=== PATIENT | female | born 1930 | race Caucasian/White ===

== ENCOUNTER 2016-10-19 00:57 | Inpatient (IN) | payer MEDICARE ==
[~2016-10-19] VITALS: Ht 157.5 cm; Wt 49.0 kg
[2016-10-19] MEDS ORDERED: LORAZEPAM 0.5 MG TABLET PO PRN (01:30)
[2016-10-19] MEDS ORDERED: MAG HYDROX/AL HYDROX/SIMETH 30 ML UDC PO PRN (01:30)
[2016-10-19] MEDS ORDERED: MAGNESIUM HYDROXIDE 30 ML UDC PO PRN (01:30)
[2016-10-19] MEDS ORDERED: ACETAMINOPHEN 325 MG TABLET PO PRN (01:30)
[2016-10-19] MEDS ORDERED: ZOLPIDEM TARTRATE 5 MG TABLET PO PRN (01:30)
[2016-10-19] MEDS ORDERED: QUET25TA PO (02:27)
[2016-10-19] MEDS ORDERED: RISP0.5T2 PO (02:27)
[2016-10-19 08:00] VITALS: BP 114/58
[2016-10-19] MEDS: Z GUARD REMEDY 2 OZ OINT TP SCH (08:52)
[2016-10-19 13:29] LABS: CHOLESTEROL 259 mg/dL (<200); HDL CHOLESTEROL 46 mg/dL (40-60); LDL 185 mg/dL (0-99); TRIGLYCERIDES 137 mg/dL (30-150)
[2016-10-19 16:00] VITALS: BP 101/58
[2016-10-19] MEDS: QUETIAPINE FUMARATE 25 MG TABLET PO SCH ×2 (16:34→22:00)
[2016-10-19 20:00] VITALS: BP 115/75
[2016-10-20 00:17] VITALS: BP 115/57
[2016-10-20 08:00] VITALS: BP 141/60
[2016-10-20] MEDS: QUETIAPINE FUMARATE 25 MG TABLET PO SCH ×3 (09:00→21:43)
[2016-10-20] MEDS: Z GUARD REMEDY 2 OZ OINT TP SCH (09:00)
[2016-10-20 16:00] VITALS: BP 140/64
[2016-10-20 16:18] LABS: BASOPHILS # (AUTO) 0.1 /CMM (0.0-0.2); BASOPHILS % (AUTO) 0.6 % (0.0-2.0); EOSINOPHILS # (AUTO) 0.2 /CMM (0.0-0.7); EOSINOPHILS % (AUTO) 1.2 % (0.0-6.0); HEMATOCRIT 41 % (33-45); HEMOGLOBIN 13.5 g/dL (11.5-14.8); LYMPHOCYTES % (AUTO) 38.7 % (20.0-44.0); MEAN CORPUSCULAR HEMOGLOBIN 29 PG (26.0-33.0); MEAN CORPUSCULAR HGB CONC 33 g/dl (31.0-36.0); MEAN CORPUSCULAR VOLUME 88 fL (82-100); MONOCYTES # (AUTO) 1.1 /CMM (0.1-1.30); MONOCYTES % (AUTO) 8.3 % (2.0-12.0); NEUTROPHILS # (AUTO) 6.6 /CMM (1.8-8.9); NEUTROPHILS % (AUTO) 51.2 % (43.0-81.0); PLATELET COUNT (AUTO) 296 /CMM (150-450); RDW COEFFICIENT OF VARIATION 14.3 (11.5-15.0); RED BLOOD CELL COUNT(AUTO) 4.63 MIL/uL (4.0-5.2); WHITE BLOOD COUNT (AUTO) 12.8 K/uL (4.3-11.0)
[2016-10-20 16:36] LABS: ALANINE AMINOTRANSFERASE 18 U/L (12-78); ALBUMIN 3.4 g/dL (3.4-5.0); ALKALINE PHOSPHATASE 80 U/L (46-116); ASPARTATE AMINOTRANSFERASE 13 U/L (15-37); BILIRUBIN,TOTAL 0.6 mg/dL (0.2-1.0); CALCIUM, SERUM 8.2 mg/dL (8.5-10.1); CARBON DIOXIDE 29 mmol/L (21-32); CHLORIDE 106 mmol/L (98-107); CREATININE 0.8 mg/dL (0.6-1.3); GLUCOSE 100 mg/dL (74-106); SODIUM SERUM 141 mmol/L (136-145); TOTAL PROTEIN, SERUM 6.3 g/dL (6.4-8.2); UREA NITROGEN, BLOOD 29 mg/dL (7-18)
[2016-10-20 20:00] VITALS: BP 139/65
[2016-10-21] MEDS ORDERED: IV NS 0.9% 1,000 ML BAG IV ONE (06:30)
[2016-10-21 08:00] VITALS: BP 147/69
[2016-10-21] MEDS: QUETIAPINE FUMARATE 25 MG TABLET PO SCH ×4 (09:06→21:29)
[2016-10-21] MEDS: Z GUARD REMEDY 2 OZ OINT TP SCH (09:07)
[2016-10-21 16:00] VITALS: BP 112/61
[2016-10-21 19:45] VITALS: BP 129/60
[2016-10-22 08:00] VITALS: BP 133/62
[2016-10-22] MEDS: QUETIAPINE FUMARATE 25 MG TABLET PO SCH ×4 (09:00→21:30)
[2016-10-22] MEDS: Z GUARD REMEDY 2 OZ OINT TP SCH (09:04)
[2016-10-22 16:03] VITALS: BP 117/60
[2016-10-22 19:51] VITALS: BP 132/69
[2016-10-22 20:00] VITALS: BP 132/69
[2016-10-23] MEDS ORDERED: OLANZAPINE 10 MG VIAL IM ONE ×2 (03:30→03:33)
[2016-10-23 08:00] VITALS: BP 111/65
[2016-10-23] MEDS: QUETIAPINE FUMARATE 25 MG TABLET PO SCH ×4 (08:07→21:41)
[2016-10-23] MEDS: Z GUARD REMEDY 2 OZ OINT TP SCH (08:24)
[2016-10-23 16:32] VITALS: BP 114/53
[2016-10-23 20:00] VITALS: BP 113/53
[2016-10-24 08:00] VITALS: BP 141/75
[2016-10-24] MEDS: Z GUARD REMEDY 2 OZ OINT TP SCH (09:00)
[2016-10-24] MEDS: QUETIAPINE FUMARATE 25 MG TABLET PO SCH (09:00)
[2016-10-24] MEDS ORDERED: OLANZAPINE 10 MG VIAL IM PRN (10:30)
[2016-10-24] MEDS: OLANZAPINE 5 MG/TAB.RAPDIS PO SCH ×2 (11:01→21:32)
[2016-10-24 16:00] VITALS: BP 146/66
[2016-10-24 20:00] VITALS: BP 130/65
[2016-10-25 08:00] VITALS: BP 141/67
[2016-10-25] MEDS: Z GUARD REMEDY 2 OZ OINT TP SCH (08:30)
[2016-10-25] MEDS: OLANZAPINE 5 MG/TAB.RAPDIS PO SCH ×2 (08:34→21:51)
[2016-10-25] MEDS: CLOTRIMAZOLE 1% 15 GM TUBE TP SCH ×2 (13:52→17:11)
[2016-10-25 16:24] VITALS: BP 114/52
[2016-10-25 20:00] VITALS: BP 127/51
[2016-10-26] MEDS: OLANZAPINE 5 MG/TAB.RAPDIS PO SCH ×2 (08:30→21:04)
[2016-10-26] MEDS: CLOTRIMAZOLE 1% 15 GM TUBE TP SCH ×2 (08:32→16:07)
[2016-10-26] MEDS: Z GUARD REMEDY 2 OZ OINT TP SCH (08:32)
[2016-10-26 08:58] VITALS: BP 141/65
[2016-10-26 16:23] VITALS: BP 127/52
[2016-10-26 20:00] VITALS: BP 111/58
[2016-10-27 08:00] VITALS: BP 130/60
[2016-10-27] MEDS: OLANZAPINE 5 MG/TAB.RAPDIS PO SCH ×2 (08:48→21:37)
[2016-10-27] MEDS: CLOTRIMAZOLE 1% 15 GM TUBE TP SCH ×2 (08:49→16:24)
[2016-10-27] MEDS: Z GUARD REMEDY 2 OZ OINT TP SCH (09:14)
[2016-10-27 16:00] VITALS: BP 138/53
[2016-10-27 20:00] VITALS: BP 119/53
[2016-10-28] MEDS: OLANZAPINE 5 MG/TAB.RAPDIS PO SCH ×2 (08:10→21:14)
[2016-10-28 08:19] VITALS: BP 112/60
[2016-10-28] MEDS: CLOTRIMAZOLE 1% 15 GM TUBE TP SCH ×2 (09:29→16:35)
[2016-10-28] MEDS: Z GUARD REMEDY 2 OZ OINT TP SCH (11:29)
[2016-10-28 16:00] VITALS: BP 116/60
[2016-10-28 19:41] VITALS: BP 103/55
[2016-10-29 08:00] VITALS: BP 100/54
[2016-10-29] MEDS: OLANZAPINE 5 MG/TAB.RAPDIS PO SCH ×2 (08:10→20:53)
[2016-10-29] MEDS: CLOTRIMAZOLE 1% 15 GM TUBE TP SCH ×2 (08:11→17:25)
[2016-10-29] MEDS: Z GUARD REMEDY 2 OZ OINT TP SCH (08:12)
[2016-10-29 16:00] VITALS: BP 120/54
[2016-10-29 20:25] VITALS: BP 116/50
[2016-10-29 22:45] LABS: APPEARANCE,URINE CLEAR (CLEAR); BILIRUBIN,URINE NEGATIVE (NEGATIVE); BLOOD, URINE NEGATIVE Ery/uL (NEGATIVE); COLOR,URINE YELLOW (YELLOW); KETONES,URINE NEGATIVE (NEGATIVE); LEUKOCYTE ESTERASE ,URINE TRACE (NEGATIVE); NITRITE, URINE NEGATIVE (NEGATIVE); PH,URINE 5.5 (5.0-8.0); PROTEIN,URINE NEGATIVE (NEGATIVE); UGLUCOSE NEGATIVE (NEGATIVE); UROBILINOGEN,URINE 0.2 EU/dL (0.2)
[2016-10-29 23:16] LABS: BACTERIA,URINE None seen /HPF (None Seen); MUCUS,URINE Rare /LPF (None Seen); RBC,URINE NONE SEEN /HPF (0-2); SQUAMOUS EPITHELIAL CELL,UR Rare /HPF (None Seen); WBC,URINE 0-2 /HPF (0-3)
[2016-10-30 08:00] VITALS: BP 101/58
[2016-10-30] MEDS: Z GUARD REMEDY 2 OZ OINT TP SCH (09:00)
[2016-10-30] MEDS: CLOTRIMAZOLE 1% 15 GM TUBE TP SCH (09:00)
[2016-10-30] MEDS: OLANZAPINE 5 MG/TAB.RAPDIS PO SCH (10:04)
[2016-10-30 13:15] VITALS: BP 129/72
== END 2016-10-30 13:30 | DRG 885 ==
LOC: GPS 00:57
PROVIDERS: ADMIT Psychiatry & Neurology Psychiatry; ATTEND Internal Medicine
DX: F29 Unspecified psychosis not due to a substance or known physiological condition (principal); N17.0 Acute kidney failure with tubular necrosis; F03.91 Unspecified dementia, unspecified severity, with behavioral disturbance; F20.9 Schizophrenia, unspecified; F31.9 Bipolar disorder, unspecified; I10 Essential (primary) hypertension; I25.10 Atherosclerotic heart disease of native coronary artery without angina pectoris; L30.4 Erythema intertrigo; Z86.73 Personal history of transient ischemic attack (TIA), and cerebral infarction without residual deficits; Z91.14 Patient's other noncompliance with medication regimen; L60.3 Nail dystrophy; E78.5 Hyperlipidemia, unspecified; B35.1 Tinea unguium; L98.8 Other specified disorders of the skin and subcutaneous tissue; Z73.6 Limitation of activities due to disability; L72.8 Other follicular cysts of the skin and subcutaneous tissue
CPT/HCPCS: 36415; 80053-TC; 80061-TC; 81000-TC; 85025-TC; 87081-TC; 87086-TC; J3490